=== PATIENT | female | born 1990 | race Caucasian/White ===

== ENCOUNTER 2017-12-20 17:25 | Emergency (ER) | payer OTHER ==
[2017-12-20 17:37] VITALS: BP 108/71; PULSE 69; TEMP 98.3
--- NOTE | 2017-12-20 17:40 | PDOC ---
Rapid Medical Evaluation Chief Complaint: Shortness of Breath Time Seen by Provider: 12/20/17 17:38 Medical Evaluation: Allergies Allergy/AdvReac Type Severity Reaction Status Date / Time No Known Allergies Allergy Verified 12/20/17 17:30 Vital Signs Temp Pulse Resp BP Pulse Ox 98.3 F 69 16 108/71 100 12/20/17 17:30 12/20/17 17:30 12/20/17 17:30 12/20/17 17:30 12/20/17 17:30 12/20/17 17:38 I have performed a brief in-person evaluation of this patient. The patient presents with a chief complaint of: h/o asthma with complains of 3 months h/o intermittent SOB, chest tightness and mid-sternal chest pain. no chest pain now. Denies dizziness, change in vision, palpitations, lightheadedness, sweats, N/V Pertinent physical exam findings: lungs CTA B/L. heart RRR I have ordered the following: EKG, CXR The patient will proceed to the ED for further evaluation. Discharge Disposition - Diagnosis SOB (shortness of breath) - Referrals Referrals: Arminda Remy MD [Primary Care Provider] - - Patient Instructions - Post Discharge Activity
--- NOTE | 2017-12-20 18:51 | PDOC ---
Attending Attestation - HPI HPI: 12/20/17 19:44 The patient is a 27 year old female, with a significant past medical history of asthma, who presents to the emergency department with, worsening chest pain. Patient gave 3 months ago and since then has been experiencing chest pain. She notes the pain has been worse over the past 2 weeks especially the past 2 days. She describes it as intermittent, midsternal radiating bilaterally to under the breast bone and to the neck, ranking 10/10. Patient also endorses shortness of breath. Allergies: NKA <GeberdanSerafinvanjinae - Last Filed: 12/20/17 19:44> - Resident Resident Name: Ana Nick - ED Attending Attestation I have performed the following: I have examined & evaluated the patient, The case was reviewed & discussed with the resident, I agree w/resident's findings & plan, Exceptions are as noted - HPI HPI: 12/20/17 19:37 THIS 27 YO FEMALE GAVE TO FULL TERM ON AUGUST 24 she has c/o increasing dypsnea with exertion DENIES any fever,chills,cough,abd pain or N,V,D 12/20/17 19:39 - Physicial Exam PE: 12/20/17 19:39 thin 27 yo female alert and ambulatory head ncat neck no jvd, no bruits lungs cta b/l cvs [id number] no rubs,no murmers,no gallops abd flat,nontender ext no edema,no clubbing skin warm, dry neuro axox3,no ataxia,motor strength 5/5, b/l psych appropriate - Medical Decision Making 12/20/17 20:29 Chest x-ray : no infiltrates, no effusions, no cardiomegalY troponin is negative LFTs very elevated and so considering cholestasis ,US ordered 12/20/17 20:34 12/20/17 21:14 d dimer 581 but pt is refusing heplock and the ct scan the risks and consequences of nt getting the CTA chest were explained to the pt 12/20/17 21:29 Ultrasound of the abdomen shows small gallstones. Approximate 6 mm x 4 mm stone at the level of the gallbladder neck. There is mild diffuse thickening of the gallbladder with questionable edema. Cannot rule out acute cholecystitis Pericholecystic free fluid is present. Patient refuses CT of the chest and was fine form stating there was an consequences of not having the CT of the chest at this time. The patient does not want to be admitted for further evaluation or treatment of her symptoms. She was explained that she needs follow-up with her primary doctor as soon as possible and she is to return for any worsening symptoms <Josie Franks - Last Filed: 12/20/17 21:31> Attestations - Attestations 12/20/17 19:45 Documentation prepared by Can Alvarez, acting as medical practitioners for Josie Franks MD. <Can Alvarez - Last Filed: 12/20/17 19:44>
[2017-12-20 19:32] LABS: BASO % 1.2 % (0-2.0); HEMATOCRIT 39.6 % (32.4-45.2); HEMOGLOBIN 13.3 GM/dL (10.7-15.3); LYMPH % 33.9 % (8-40); MCH 31.5 pg (25.7-33.7); MCHC 33.5 g/dl (32.0-36.0); MEAN CELL VOLUME 93.9 fl (80-96); MEAN PLT VOLUME 8.5 fl (7.5-11.1); MONO % 5.4 % (3.8-10.2); NEUT % 54.5 % (42.8-82.8); PLATELET COUNT 231 K/MM3 (134-434); RBC 4.22 M/mm3 (3.60-5.2); RDW 12.8 % (11.6-15.6); WHITE BLOOD COUNT 4.2 K/mm3 (4.0-10.0)
--- NOTE | 2017-12-20 19:35 | PDOC ---
History of Present Illness - General Chief Complaint: Shortness of Breath Stated Complaint: CHEST PAIN Time Seen by Provider: 12/20/17 17:38 History Source: Patient Exam Limitations: No Limitations - History of Present Illness Initial Comments: 12/20/17 19:30 27F w/ pmhx of asthma presents with worsening chest pain and shortness of breath over the past 2 weeks. Pt's symptoms originally began in July after giving . Pt states her chest pain is located in the mid-sternum and radiates bilaterally below both breasts as well as up to the neck. Pain is rated 10/10. She says over the past 2-3 days, the chest pain and shortness of breath had been getting worse to the point where it wakes her up from sleep. She admits to dyspnea on exertion after climbing 1 flight of stairs. She also reports having to use 3 pillows to sleep. Pt has no hx of cardiac disease. PCP: Dr. 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 Denies recent travel Lives at home with and son Past History - Past Medical History Allergies/Adverse Reactions: Allergies Allergy/AdvReac Type Severity Reaction Status Date / Time No Known Allergies Allergy Verified 12/20/17 17:30 Home Medications: Ambulatory Orders Control Pill 1 tab PO DAILY 12/20/17 Asthma: Yes COPD: No - Suicide/Smoking/Psychosocial Hx Smoking History: Never smoked Drug/Substance Use Hx: No Review of Systems - Review of Systems Able to Perform ROS?: Yes Is the patient limited Kyrgyz proficient: No Constitutional: No: Diaphoresis, Fever, Weakness HEENTM: No: Blurred Vision, Double Vision Respiratory: Yes: Orthopnea, Shortness of Breath, SOB with Exertion, SOB at Rest Cardiac (ROS): Yes: Chest Pain, Lightheadedness, Chest Tightness. No: Syncope ABD/GI: No: Constipated, Diarrhea, Nausea, Vomiting Neurological: Yes: Headache, Dizziness *Physical Exam - Vital Signs Last Vital Signs Temp Pulse Resp BP Pulse Ox 98.3 F 69 16 108/71 100 12/20/17 17:30 12/20/17 17:30 12/20/17 17:30 12/20/17 17:30 12/20/17 17:30 - Physical Exam General Appearance: Yes: Appropriately Dressed HEENT: positive: EOMI, GISELLE Neck: positive: Trachea midline, Supple. negative: Decreased range of motion, Lymphadenopathy (R), Lymphadenopathy (L) Respiratory/Chest: positive: Chest Tender, Lungs Clear, Normal Breath Sounds. negative: Accessory Muscle Use, Decreased Breath Sounds Cardiovascular: positive: Regular Rhythm, Regular Rate, S1, S2. negative: JVD, Murmur Vascular Pulses: Dorsalis-Pedis (R): 2+, Doralis-Pedis (L): 2+ Gastrointestinal/Abdominal: positive: Normal Bowel Sounds, Tender (epigastric region) Neurologic: positive: diesel engine fitter II-XII NML intact, Fully Oriented, Alert, Motor Strength 5/ ED Treatment Course - LABORATORY CBC & Chemistry Diagram: 12/20/17 19:05 12/20/17 19:41 - ADDITIONAL ORDERS Additional order review: Laboratory Results 12/20/17 18:00 Urine HCG, Qual Negative Medical Decision Making - Medical Decision Making 12/20/17 19:46 sob and chest pain; ddx includes asthma vs. PE vs. ACS - will order cmp, trops, cbc, cmp, d-dimer for further work up 12/20/17 21:00 -elevated liver enzymes, limited abd u/s ordered 12/20/17 22:01 Ultrasound of the abdomen shows small gallstones. Approximate 6 mm x 4 mm stone at the level of the gallbladder neck. There is mild diffuse thickening of the gallbladder with questionable edema. Cannot rule out acute cholecystitis Pericholecystic free fluid is present. CTA chest also ordered to r/o PE because of pt's persistent sob. Refusing further medical care. Signed out AMA and made aware of risks. *DC/Admit/Observation/Transfer Diagnosis at time of Disposition: SOB (shortness of breath), Cholecystitis - Discharge Dispostion Disposition: AGAINST MEDICAL ADVICE Condition at time of disposition: Good Decision to Admit order: No - Referrals Referrals: Arminda Remy MD [Primary Care Provider] - - Patient Instructions Additional Instructions: Pt presented with chest pain and shortness of breath as well as abdominal pain. Upon imaging, pt was found to have gallstones with possible cholecystitis. She also refused CTA chest to r/o possible PE because of her persistent sob. Pt refused further testing and signed out AMA. Pt made aware of risks of leaving against medical advice including risks of blood clot, respiratory distress, as well as, infection of the gallbladder, gallbladder rupture and even . Pt advised to follow up with primary care physician. - Post Discharge Activity Forms/Work/School Notes: Back to Work
[2017-12-20 20:16] LABS: ALBUMIN 4.2 g/dl (3.4-5.0); ALK PHOS 189 U/L (45-117); ANION GAP 5 MMOL/L (8-16); BILIRUBIN,TOTAL 0.7 mg/dL (0.2-1); BLOOD UREA NITROGEN 9 mg/dL (7-18); CALCIUM 8.7 mg/dL (8.5-10.1); CHLORIDE 107 mmol/L (98-107); CO2 27 mmol/L (21-32); CREATININE 0.5 mg/dL (0.55-1.3); GLUCOSE,RANDOM 75 mg/dL (74-106); SGOT/AST 578 U/L (15-37); SGPT/ALT 743 U/L (13-61); SODIUM 140 mmol/L (136-145); TOT PROT 7.8 g/dl (6.4-8.2)
[2017-12-20] MEDS ORDERED: SODIUM CHLORIDE 1,000 ML IV STA (21:07)
--- NOTE | 2017-12-21 15:17 | EKG ---
Test Reason : Blood Pressure : / mmHG Vent. Rate : 062 BPM Atrial Rate : 062 BPM P-R Int : 134 ms QRS Dur : 084 ms QT Int : 402 ms P-R-T Axes : 019 049 037 degrees QTc Int : 408 ms NORMAL SINUS RHYTHM LOW VOLTAGE QRS BORDERLINE ECG NO PREVIOUS ECGS AVAILABLE Confirmed by HORACIO BRADLEY, LIZZ ([id number]) on 12/21/2017 3:17:05 PM Referred By: Confirmed By:LIZZ LEONARD MD
== END 2017-12-20 22:00 | disposition left against medical advice (07) ==
LOC: JER 17:25 → JERFT 17:25 → JER 22:00
DX: K80.10 Calculus of gallbladder with chronic cholecystitis without obstruction (principal); R06.02 Shortness of breath; R74.8 Abnormal levels of other serum enzymes; Z79.3 Long term (current) use of hormonal contraceptives
CPT/HCPCS: 36415; 71046-TC-FY; 76705-TC; 80053; 82550; 84484; 84703; 85025; 85379; 93005; 93010; 99282-25

== ENCOUNTER 2022-01-17 10:35 | Emergency (ER) | payer OTHER ==
[2022-01-17 10:42] VITALS: BP 105/68; PULSE 134; RESP 18; TEMP 98.7; BMI 22.4
[2022-01-17] MEDS ORDERED: diphenhydrAMINE HCL 25 MG CAPSULE (FP) PO ONE ×2 (11:06→11:22)
[2022-01-17] MEDS ORDERED: predniSONE 20 MG TABLET (UD) PO ONE (11:06)
[2022-01-17] MEDS ORDERED: predniSONE 20 MG TABLET (UD) ONE (11:22)
[2022-01-17] MEDS ORDERED: FAMOTIDINE 20 MG TABLET PO ONE (12:11)
[2022-01-17] MEDS ORDERED: FAMOTIDINE 20 MG TABLET ONE (12:16)
== END 2022-01-17 13:14 | disposition home or self-care (01) ==
LOC: JERFT 10:35
DX: T78.40XA Allergy, unspecified, initial encounter (principal)
CPT/HCPCS: 0241U-QW; 99283-25

== ENCOUNTER 2022-12-06 16:12 | Emergency (ER) | payer OTHER ==
[2022-12-06 16:47] VITALS: BP 122/75; PULSE 106; RESP 20; TEMP 98.4; BMI 25.1
[2022-12-06 18:41] LABS: BASO % 0.4 % (0-2.0); EOS % 0.3 % (0-4.5); HEMATOCRIT 39.3 % (32.4-45.2); HEMOGLOBIN 13.7 GM/dL (10.7-15.3); LYMPH % 15.6 % (8-40); MCH 30.8 pg (25.7-33.7); MEAN CELL VOLUME 88.2 fl (80-96); MEAN PLT VOLUME 8.2 fl (7.5-11.1); MONO % 7.6 % (3.8-10.2); NEUT % 76.1 % (42.8-82.8); PLATELET COUNT 275 10^3/uL (134-434); RBC 4.45 M/mm3 (3.60-5.2); RDW 13.7 % (11.6-15.6)
[2022-12-06 18:55] LABS: POTASSIUM 3.4 mmol/L (3.5-5.1)
[2022-12-06 18:57] LABS: BLOOD UREA NITROGEN 9.8 mg/dL (7-18); CALCIUM 8.6 mg/dL (8.5-10.1)
[2022-12-06 19:01] LABS: CREATININE 0.7 mg/dL (0.55-1.3)
== END 2022-12-06 19:30 | disposition left against medical advice (07) ==
LOC: JER 16:12
DX: R07.81 Pleurodynia (principal); R06.02 Shortness of breath; R42 Dizziness and giddiness; R07.1 Chest pain on breathing
CPT/HCPCS: 36415; 71046-TC-FY; 80048; 84443; 84484; 84703; 85025; 93005; 93010; 99285-25